=== PATIENT | male | born 1960 | race Caucasian/White ===

== ENCOUNTER 2017-05-19 19:59 | Inpatient (IN) | payer SELFPAY ==
[~2017-05-19] VITALS: Ht 172.7 cm; Wt 81.6 kg
[2017-05-19] MEDS ORDERED: ASPIRIN 81MG TABLET PO STA (21:37)
[2017-05-19] MEDS: NITROGLYCERIN 0.4MG TABLET SL SL PRN (21:59)
[2017-05-19 22:03] LABS: BASOPHILS % 0.6 % (0.0-2.0); EOSINOPHILS % 1.2 % (0.0-5.0); HEMATOCRIT. 44.9 % (42.0-52.0); HEMOGLOBIN. 15.3 g/dL (14.0-18.0); LYMPHOCYTES % 29.2 % (20.0-50.0); MEAN CORPUSCULAR HEMOGLOBIN 29.7 pg (28.0-32.0); MEAN PLATELET VOLUME 8.6 fl (7.4-10.4); MONOCYTES % 8.9 % (2.0-8.0); NEUTROPHILS % 60.1 % (40.0-76.0); PLATELET 243 x1000/uL (130-400); RED BLOOD CELL COUNT 5.16 mill/uL (4.7-6.1); RED CELL DISTRIBUTION WIDTH 13.7 % (11.6-14.6)
[2017-05-19 22:13] LABS: CHLORIDE 107 mEq/L (98-107); D-DIMER 0.32 mg/L FEU (<0.50); PARTIAL THROMBOPLASTIN TIME 29.2 sec (23.4-31.0); PROTHROMBIN TIME 10.7 sec (9.4-11.6)
[2017-05-19] MEDS ORDERED: SODIUM CHLORIDE 0.9% 1000ML BAG (SEPSIS BOLUS) IV ONE (22:45)
[2017-05-19] MEDS ORDERED: LEVOFLOXACIN 750MG PREMIX 150 ML IV ONE (22:45)
[2017-05-20 01:45] VITALS: BP 120/70
[2017-05-20] MEDS ORDERED: ACETAMINOPHEN 325MG TABLET PO PRN (02:15)
[2017-05-20] MEDS ORDERED: DIPHENHYDRAMINE 50MG/ML VIAL IV PRN (02:15)
[2017-05-20] MEDS ORDERED: ONDANSETRON HCL 4MG/2ML VIAL IV PRN (02:15)
[2017-05-20] MEDS ORDERED: CLONIDINE 0.1MG TABLET PO PRN (02:15)
[2017-05-20] MEDS ORDERED: MAGNESIUM/ALUMINUM HYDROXIDE/SIMETHICONE 30ML UDC PO PRN (02:15)
[2017-05-20] MEDS ORDERED: IBUPROFEN 600MG TABLET PO PRN (02:15)
[2017-05-20] MEDS ORDERED: HYDROCODONE/ACETAMINOPHEN 5/325MG TABLET PO PRN (02:15)
[2017-05-20 02:51] LABS: CLARITY URINE CLEAR (CLEAR); COLOR URINE YELLOW (YELLOW); KETONES URINE NEGATIVE (NEGATIVE); LEUKOCYTE ESTERASE URINE NEGATIVE (NEGATIVE); NITRITE URINE NEGATIVE (NEGATIVE); OCCULT BLOOD URINE NEGATIVE (NEGATIVE); PROTEIN URINE NEGATIVE (NEGATIVE); SPECIFIC GRAVITY URINE 1.015 (1.005-1.030); UROBILINOGEN URINE 0.2 E.U./dL (0.2-1.0)
[2017-05-20 04:00] VITALS: BP 100/61
[2017-05-20] MEDS: SODIUM CHLORIDE 0.9% INJ 3ML FLUSH IVF SCH ×2 (05:19→08:24)
[2017-05-20 08:00] VITALS: BP 130/68
[2017-05-20] MEDS ORDERED: GUAIFENESIN 600MG ER TABLET PO SCH (09:00)
[2017-05-20] MEDS: IPRATROPIUM/ALBUTEROL 0.5-3(2.5)MG/3ML NEB HHN SCH ×2 (09:11→13:51)
[2017-05-20] MEDS ORDERED: IOHEXOL-350 100 ML BOTTLE ONE (10:06)
[2017-05-20 12:00] VITALS: BP 112/70
[2017-05-20 16:00] VITALS: BP 125/74
[2017-05-20 19:44] VITALS: BP 125/74
[2017-05-21] MEDS ORDERED: LEVOFLOXACIN 500MG PREMIX 100 ML IV SCH
== END 2017-05-20 20:55 | disposition home or self-care (01) | DRG 720 ==
LOC: ER 20:14 → 7WST 22:54 → EDBEDREQ 22:58 → ENRESERV 23:49 → 7WST 05-20 06:50
PROVIDERS: ADMIT Internal Medicine; ATTEND Internal Medicine
DX: A41.9 Sepsis, unspecified organism (principal); J18.9 Pneumonia, unspecified organism; Z82.49 Family history of ischemic heart disease and other diseases of the circulatory system; Z83.3 Family history of diabetes mellitus
CPT/HCPCS: 36415; 71045; 71275; 80053; 81003; 83605; 83880; 84484; 85025; 85379; 85610; 85730; 87040; 87086; 93005; 93306; 93970; 94640; J1956; J7030; J7620; Q9967